=== PATIENT | male | born 1960 | race Caucasian/White ===

== ENCOUNTER → 2021-04-02 06:27 | Outpatient (CLI) | payer BC, SELFPAY ==
[2021-04-04 17:05] LABS: SARS-CoV-2 RNA PCR Negative
== END ==
DX: R50.9 Fever, unspecified (principal); Z20.822 Contact with and (suspected) exposure to COVID-19
CPT/HCPCS: C9803; U0003; U0005

== ENCOUNTER 2022-10-13 09:30 | Outpatient (CLI) | payer BC, SELFPAY ==
--- NOTE | 2022-10-13 11:00 | NEURO_ITS ---
IMPRESSION: # History of right upper extremity pain,numbness and tingling. # Right ulnar neuropathy with slowing across the elbow. # Normal EMG/needle exam # Clinical correlation recommended. Motor Nerve Conduction Upper Extremities Median Nerve Conduction Velocity (m/sec) Terminal Latency (msec) Response Voltage(mV) Elbow-Wrist Wrist Elbow Wrist Right 52 3.3 5 7 Left Ulnar Nerve Conduction Velocity (m/sec) Terminal Latency (msec) Response Voltage(mV) Above Elbow Below Elbow Wrist Above Elbow Below Elbow Wrist Right 49 62 2.6 4 5 6 Left F-Wave Latency Median (ms) Ulnar (ms) Right 30.1 30.9 Left Sensory Nerve Conduction Upper Extremities Median Nerve Stimulation Terminal Latency (msec) Wrist/Digit Response Voltage (uV) Wrist Right 3.4/3.8 29/13 Left Ulnar Nerve Stimulation Terminal Latency (msec) Wrist/Digit Response Voltage (uV) Wrist Right 2.8 28 Left Radial Nerve Terminal Latency (msec) Response Voltage(mV) Right 2.2 24 Left Left Right Muscles Examined Fibrillation Fasciculation Scarcity Voltage Duration Left Right Left Right Left Right Left Right Left Right Deltoid Biceps X Brachioradialis Triceps X Pronator Teres X Ext Indicis X Ext Digitorum X Abd Poll Brev X 1st Dorsal Interosseus Paraspinals MTDD
== END 2022-10-13 09:31 | disposition home or self-care (01) ==
LOC: ANHNEURO 09:34
PROVIDERS: PCP Internal Medicine
DX: R20.2 Paresthesia of skin (principal); M79.609 Pain in unspecified limb; G56.21 Lesion of ulnar nerve, right upper limb
CPT/HCPCS: 95886; 95909

== ENCOUNTER → 2023-02-26 14:31 | Outpatient (CLI) | payer BC, SELFPAY ==
--- NOTE | ~2023-02-26 | MR_ITS ---
EXAMINATION: MR wrist RT wo/w con DATE: 02/26/2023 15:27 INDICATION: Inflammatory arthritis TECHNIQUE: Magnetic resonance imaging (MRI) of the right wrist was performed without intravenous cont rast. Sequences performed include axial PD-weighted FSE and PD-weighted FS FSE, coronal PD-weighted F S FSE and T1-weighted SE, and sagittal PD-weighted FS FSE and PD-weighted FSE. COMPARISON: None FINDINGS: Bones/other: Bone alignment is normal. No fracture. No discrete ulnar styloid process which could be related to ei ther prior trauma or sequela of chronic remodeling associated with the severe osteoarthritis at the u lnar side of the wrist joint. There is mild dorsal subluxation at the distal radioulnar joint with ad ditional remodeling and prominent osteophytes along the radial side of the distal head of the ulna. A dditional polyarticular osteoarthritis, severe at the triscaphe joint, moderate at the first carpomet acarpal joint and mild at the remaining joints in the carpus and first metacarpophalangeal joint. The re are multiple small T2 hyperintense nonenhancing lytic lesions with low signal intensity likely scl erotic peripheral margins which are most prominent along the articular surfaces with a severe osteoar thritis including at the distal ulna, ulnar side of the radius, at the lunate, triquetrum and at both sides of the triscaphe joint which suggests these are primarily degenerative subchondral cysts altho ugh several appear relatively uniformly enhancing with underlying cortical destruction and overhangin g edges which are more suspicious for erosions. There is a partially visualized T2 hyperintense lesio n with lobular margins and without evident associated enhancement at the visualized neck of the secon d metacarpal which could represent either intraosseous ganglion cyst or potentially an enchondroma. T here is enhancing synovitis at the distal radioulnar joint and throughout the carpus. Intrinsic ligaments: The scapholunate and lunotriquetral ligaments are normal. Triangular fibrocartilage complex (TFCC): Complex tear and likely secondary degeneration of the triangular fibrocartilage complex with large de fect at the central fibrocartilaginous disc and with increased signal consistent with partial tears o f the dorsal and volar radioulnar ligaments and foveal attachment. The ulnar styloid attachment is ab sent. There is mild stripping of the ulnar side of the attachment of the extensor carpi ulnaris (ECU) subsheath from the ulnar rim of the ECU groove resulting in minimal partial subluxation of the other mccarthy normal. Extensor carpi ulnaris tendon across the ulnar rim of the ECU groove. Extensor wrist: Extensor tendons of the wrist are normal. No tenosynovitis. Flexor wrist: The flexor tendons of the wrist are normal. No abnormality in the carpal tunnel with normal median n erve. Guyon's canal: Guyon's canal including the ulnar nerve and artery are normal. IMPRESSION: 1. 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 2. Multiple small enhancing lesions at the wrist and carpus which appear predominantly associated wit h the regions of severe osteoarthritis favoring degenerative subchondral cystic changes although a fe w lesions. Uniform enhancement with appearance consistent with pleural effusions which could be due t o an inflammatory or more likely crystalline arthritis such as gout or calcium pyrophosphate depositi on (CPPD) disease. 3. Complex tear and secondary degeneration of the triangular fibrocartilage complex. 4. Partially visualized T2 hyperintense lesion with lobular margins at the neck of the second metacar pal which is without evident enhancement most likely either an intraosseous ganglion cyst or enchondr raya.
== END ==
PROVIDERS: PCP Internal Medicine
DX: M19.90 Unspecified osteoarthritis, unspecified site (principal); M25.531 Pain in right wrist
CPT/HCPCS: 73223; A9577

== ENCOUNTER 2024-05-22 12:53 | Outpatient (CLI) | payer BC, SELFPAY ==
--- NOTE | ~2024-05-22 | MR_ITS ---
MRI of the right wrist CLINICAL HISTORY: Pain TECHNIQUE: Axial T1-weighted, T2 fat-sat, T1 fat-sat images, coronal T1-weighted and T2 fat-sat image s, and sagittal T1-weighted and T2 fat-sat and proton-density images were performed. Following intrav enous administration of 17 cc MultiHance gadolinium, T1-weighted fat-sat imaging was performed in the axial, coronal, and sagittal planes. COMPARISON: 02/26/2023 FINDINGS: Scapholunate ligament is intact, and there is no widening of the scapholunate interval. Michael otriquetral ligament is intact. There is probable extensive high-grade tearing of the central articular disc of the TFCC, as is nearl y completely absent, and not well delineated. There is severe osteoarthritis of the radiocarpal reticulation is no associated radial lunate articul ation. There is extensive reactive marrow edema in the lunate and distal radius, with subchondral cys tic change. There is also advanced degenerative change of the DRUJ with bony spurring present. There is mild positive ulnar variance with additional cystic change and reactive marrow edema involving the triquetrum. There is additional focal subchondral cystic change at the ulnar side process. There is mild marrow edema at the proximal scaphoid pole. There is moderate degenerative change of the triscap he joint. There is moderate degenerative change of the first CMC joint. No significant joint effusion identified. Flexor tendons and carpal tunnel are unremarkable. Extensor tendons are unremarkable. No soft tissue mass or fluid collection evident. Postcontrast images demonstrate probable reactive enhancing synovitis. No soft tissue mass or fluid c ollection evident. IMPRESSION: Severe polyarticular arthritis, especially involving the radiolunate articulation and DRUJ, with berenice tional extensive degenerative changes involving the triquetrum and proximal scaphoid pole. Element of ulnar impaction syndrome maybe present, with mild positive ulnar variance. Additional degenerative c hanges of the triscaphe joint and first CMC joint. Findings overall are very similar to prior exam. Extensive complex tearing of the TFCC, especially the central articular disc, similar to prior exam. Reviewed, dictated and finalized at location M. IMPRESSION: Severe polyarticular arthritis, especially involving the radiolunate articulati on and DRUJ, with additional extensive degenerative changes involving the triqu etrum and proximal scaphoid pole. Element of ulnar impaction syndrome maybe pre sent, with mild positive ulnar variance. Additional degenerative changes of the triscaphe joint and first CMC joint. Findings overall are very similar to prio r exam. Extensive complex tearing of the TFCC, especially the central articular disc, s imilar to prior exam.
== END 2024-05-22 12:54 ==
LOC: MICIMG 12:55
PROVIDERS: PCP Internal Medicine
DX: M19.031 Primary osteoarthritis, right wrist (principal)
CPT/HCPCS: 73223; A9577

== ENCOUNTER 2024-08-18 13:38 | Outpatient (CLI) | payer BC, SELFPAY ==
[2024-08-18 13:51] LABS: Basophils Percent Auto 0.4 % (0.2-1.2); Eosinophils Absolute Auto 0.1 K/mm3 (0-0.3); Hematocrit 43.1 % (42.0-52.0); Hemoglobin 14.5 g/dL (14.0-18.0); Immature Granulocyte Absolute 0.01 K/mm3 (0.00-0.031); Immature Granulocyte Percent A 0.2 % (0-0.5); Lymphocytes Absolute Auto 1.42 K/mm3 (0.9-3.2); Lymphocytes Percent Auto 25.5 % (18.3-44.2); Mean Corpuscular HGB Conc 33.6 g/dl (32-36); Mean Corpuscular Hemoglobin 31.7 pg (26-34); Mean Corpuscular Volume 94.3 fl (80-100); Mean Platelet Volume 10.4 fl (7.4-10.4); Monocytes Absolute Auto 0.6 K/mm3 (0.1-0.6); Monocytes Percent Auto 10.4 % (2.6-8.5); Neutrophils Absolute Auto 3.4 K/mm3 (1.3-6.7); Neutrophils Percent Auto 61.5 % (45.5-73.1); Platelet Count Result 160 k/mm3 (150-375); Red Blood Count 4.57 M/mm3 (4.6-6.20); Red Cell Distribution Width 12.6 % (11.5-14.5); White Blood Count 5.6 K/mm3 (4.5-10.0)
[2024-08-18 13:55] LABS: Blood Urea Nitrogen 17 mg/dL (8-26); Carbon Dioxide 25 mmol/L (22-30); Chloride 100 mmol/L (98-109); Estimated Glomerular Filt Rate > 60; Glucose 95 mg/dL (70-105); Ionized Calcium (POC) 1.18 mmol/L (1.11-1.31); Potassium 3.8 mmol/L (3.5-4.9); Sodium 138 mmol/L (138-146)
== END 2024-08-18 13:39 | disposition home or self-care (01) ==
LOC: ANHLAB 13:39
PROVIDERS: PCP Internal Medicine; Visit Provider Internal Medicine Hematology & Oncology
DX: D75.1 Secondary polycythemia (principal)
CPT/HCPCS: 36415; 80047; 85025